=== PATIENT | male | born 1980 | race Caucasian/White ===

== ENCOUNTER 2019-07-08 15:50 | Emergency (ER) | payer BC, OTHER ==
[~2019-07-08] VITALS: Ht 182.9 cm; Wt 206.0 kg
[2019-07-08 15:52] VITALS: BP 178/104
[2019-07-08] MEDS ORDERED: CIPR10DR LEFT EAR (16:25)
--- NOTE | 2019-07-08 18:08 | NUR ---
PT CALLED REGARDING RX FOR ABX/EAR INFECTION. STATES THAT INSURANCE WILL NOT COVER MEDICATION AND REQUESTING A DIFFERENT ONE THAT WILL BE COVERED. [facility] CALLED AND RX WAS CHANGED TO POLYMYXON B ; 2GTT LT EAR TID X 7 DAYS. PT WAS CALLED AND NOTIFIED THAT RX WAS CHANGED, CALLED INTO [facility] REQUESTED AND GIVEN ADMINISTRATION INSTRUCTIONS.
== END 2019-07-08 16:52 | disposition home or self-care (01) ==
LOC: ER 15:51
DX: H60.92 Unspecified otitis externa, left ear (principal); Z88.0 Allergy status to penicillin; Z79.899 Other long term (current) drug therapy
CPT/HCPCS: 99283

== ENCOUNTER 2019-09-15 05:19 | Outpatient (CLI) | payer OTHER, BC ==
[2019-09-15 08:06] LABS: BASOPHILS # (AUTO) 0.1 X10'3 (0-0.2); BASOPHILS % (AUTO) 0.6 % (0-1); EOSINOPHILS # (AUTO) 0.2 X10'3 (0-0.9); EOSINOPHILS % (AUTO) 1.9 % (0-6); HEMATOCRIT 47.9 % (42.0-52.0); HEMOGLOBIN 16.5 g/dl (14.0-17.9); LYMPHOCYTES # (AUTO) 1.9 X10'3 (1.1-4.8); MEAN CORPUSCULAR HEMOGLOBIN 30.2 PG (27.0-31.0); MEAN CORPUSCULAR HGB CONC 34.5 g/dL (33.0-36.5); MEAN CORPUSCULAR VOLUME 87.5 FL (78-98); MONOCYTES # (AUTO) 0.9 X10'3 (0-0.9); MONOCYTES % (AUTO) 10.6 % (2-12); NEUTROPHILS # (AUTO) 5.7 X10'3 (1.8-7.7); NEUTROPHILS % (AUTO) 64.9 % (42-75); PLATELET COUNT 220 X10'3 (140-440); RED BLOOD COUNT 5.47 X10'6 (4.70-6.10); RED CELL DISTRIBUTION WIDTH 13.9 % (11.5-14.5); WHITE BLOOD COUNT 8.8 X10'3 (4.5-11.0)
[2019-09-15 08:23] LABS: ALANINE AMINOTRANSFERASE 38 U/L (12-78); ALBUMIN 3.7 G/DL (3.4-5.0); ALKALINE PHOSPHATASE 89 IU/L (46-116); ANION GAP 7 (8-16); BILIRUBIN,TOTAL 0.7 MG/DL (0.1-1.0); BLOOD UREA NITROGEN 13 MG/DL (7-18); BUN/CREATININE RATIO 14.4 (5.4-32.0); CALCIUM 8.5 MG/DL (8.5-10.1); CHLORIDE 105 MMOL/L (99-107); CHOL/HDL RATIO 3.3 (0.00-4.99); CHOLESTEROL 148 MG/DL (0-200); GLUCOSE 97 MG/DL (70-104); HDL CHOLESTEROL 45 MG/DL (35-60); LDL CHOLESTEROL 92 MG/DL (50-100); SODIUM 141 MMOL/L (135-145); TOTAL CARBON DIOXIDE 29.2 MMOL/L (24-32); TOTAL PROTEIN 7.5 G/DL (6.4-8.2); TRIGLYCERIDES 66 MG/DL (20-135); eGFR > 90 ML/MIN
[2019-09-15 08:24] LABS: ASPARTATE AMINO TRANSFERASE 32 U/L (10-37); POTASSIUM 4.7 MMOL/L (3.5-5.1)
[2019-09-15 10:41] LABS: CLARITY,URINE CLEAR (Clear); COLOR,URINE YELLOW (Yellow); GLUCOSE, URINE NEGATIVE (Neg); KETONES,URINE NEGATIVE (Neg); LEUKOCYTE ESTERASE ,URINE NEGATIVE (Neg); NITRITES, URINE NEGATIVE (Neg); OCCULT BLOOD,URINE NEGATIVE (Neg); PH,URINE 6.5 (4.8-8.0); PROTEIN,URINE NEGATIVE (Neg)
[2019-09-15 10:44] LABS: UA COLLECTION TYPE VOIDED
== END 2019-09-15 23:59 | disposition home or self-care (01) ==
LOC: LAB 05:19
PROVIDERS: ATTEND Family Medicine
DX: Z00.00 Encounter for general adult medical examination without abnormal findings (principal)
CPT/HCPCS: 36415; 80053; 80061; 81003; 84439; 84443; 85025

== ENCOUNTER 2020-09-08 21:43 | Emergency (ER) | payer BC, OTHER ==
[~2020-09-08] VITALS: Ht 180.3 cm; Wt 181.8 kg
[2020-09-08 21:50] VITALS: BP 190/102
[2020-09-08] MEDS ORDERED: CLIN150C2 PO (22:38)
[2020-09-08] MEDS ORDERED: NAPR-56 PO (22:38)
== END 2020-09-08 22:47 | disposition home or self-care (01) ==
LOC: ER 21:43
DX: K08.89 Other specified disorders of teeth and supporting structures (principal); Z88.0 Allergy status to penicillin; Z79.899 Other long term (current) drug therapy
CPT/HCPCS: 99283

== ENCOUNTER 2020-09-10 03:17 | Emergency (ER) | payer BC ==
[~2020-09-10] VITALS: Ht 180.3 cm; Wt 207.1 kg
[~2020-09-10 03:17] MED LIST: CLIN150C2 PO; NAPR-56 PO
[2020-09-10 03:23] VITALS: BP 181/109
[2020-09-10] MEDS ORDERED: HYDR-3965 PO (03:45)
[2020-09-10] MEDS ORDERED: METH4TAB81 PO (03:45)
[2020-09-10] MEDS ORDERED: METR500T PO (03:45)
[2020-09-10] MEDS ORDERED: ONDA4TAB6 PO (03:45)
[2020-09-10] MEDS ORDERED: dexamethasone 4mg tablet PO ONE (04:00)
[2020-09-10] MEDS ORDERED: metroNIDAZOLE 500mg tablet PO ONE (04:00)
[2020-09-10] MEDS ORDERED: acetaminophen 325mg tablet PO ONE (04:00)
== END 2020-09-10 05:56 | disposition home or self-care (01) ==
LOC: ER 03:18
DX: K04.7 Periapical abscess without sinus (principal); K02.9 Dental caries, unspecified; K08.89 Other specified disorders of teeth and supporting structures; Z88.0 Allergy status to penicillin; Z79.2 Long term (current) use of antibiotics; Z79.899 Other long term (current) drug therapy
CPT/HCPCS: 99284; J3490